=== PATIENT | male | born 1950 | race Two or more races ===

== ENCOUNTER 2016-12-23 16:16 | Outpatient (CLI) | payer OTHER ==
[2016-12-23 16:29] LABS: BILIRUBIN,URINE Negative (NEGATIVE); KETONES,URINE Negative (NEGATIVE); LEUKOCYTE ESTERASE ,URINE Negative (NEGATIVE); NITRITE,URINE Negative (NEGATIVE); PROTEIN,URINE Negative (NEGATIVE); URINE, BLOOD 1+ (NEGATIVE)
[2016-12-23 16:34] LABS: ADD URINE MICROSCOPIC YES
== END 2016-12-23 16:17 | disposition home or self-care (01) ==
LOC: LAB 16:16
PROVIDERS: ATTEND Emergency Medicine
DX: R30.0 Dysuria (principal); N41.9 Inflammatory disease of prostate, unspecified
CPT/HCPCS: 81001

== ENCOUNTER 2019-01-12 11:09 | Outpatient (CLI) | payer OTHER ==
--- NOTE | 2019-01-12 14:43 | DI ---
EXAM: Two views of the chest. History: Cough. Comparison: None available. Findings: Heart size is within normal limits. No focal consolidation. No appreciable pleural fluid and no pneumothorax. A few benign calcified granulomas seen within the right lung. No acute osseou s abnormalities. 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 Impression: No acute cardiopulmonary process
--- NOTE | 2019-01-12 14:44 | DI ---
EXAM: Four views of the right knee. History: Right knee pain. Findings: No acute fracture or dislocation. Mild tricompartmental joint space narrowing with small osteophytes. Minimal superior patellar enthesiopathy. Probable trace joint effusion. Impression: 1. No acute osseous abnormality. 2. Mild tricompartmental osteoarthritis. 3. Minimal superior patellar enthesiopathy 4. Probable trace joint effusion
== END 2019-01-12 11:10 | disposition home or self-care (01) ==
LOC: RAD 11:09
PROVIDERS: ATTEND General Practice
DX: M25.561 Pain in right knee (principal); R05 Cough

== ENCOUNTER 2019-02-06 10:01 | Outpatient (CLI) ==
--- NOTE | 2019-02-06 16:27 | MRI ---
EXAM: MRI of the right knee without contrast COMPARISON: Right knee radiographs 01/12/2019. HISTORY: Right knee pain medially. Possible twisting injury. TECHNIQUE: Multiplanar noncontrast MR images of the right knee were acquired using a 1.2 Aster magne t. FINDINGS: There is a complex tear of the medial meniscus with mild blunting irregularity the free ed ge of the body through the posterior horn/root. In addition to tear involving the free edge and supe rior articular surface with peripheral superior articular surface flap at that level. 1 mm hypointen se focus along the medial aspect of the intercondylar notch which may represent a prominent intrameni scal ligament though a very small bucket-handle fragment is not entirely excluded. Radial tear invol ves the free edge extends peripherally at the body/posterior horn junction. The lateral meniscus is intact. Inversion recovery hyperintense signal throughout the substance of the anterior cruciate ligament rel ated to extensive mucoid degeneration versus a partial/interstitial tear with intact fibers clearly i dentified. The posterior cruciate ligament is intact. Low to intermediate grade sprain of the media l collateral ligament. The lateral collateral ligament complex and posterolateral corner ligaments a re intact. Moderate quadriceps tendinosis enthesopathy with mild patellar tendinosis. No abnormal s ubluxation of the patella. Sprain of the medial patellar retinaculum complex. Marked thinning and deep fissuring of the cartilage of the patella along the medial/odd facet median ridge with subchondral edema cystic change. Marked thinning and ulceration of the cartilage along th e opposing articular surface of the trochlear groove. Large full-thickness cartilage defects along w eightbearing surface of the medial femoral condyle. 1.8 x 1.4 x 0.6 cm focal region of abnormal sign al involving the subchondral portion of the weightbearing surface medial femoral condyle related to a an osteochondral lesion with subchondral cystic change/sclerosis and underlying marrow edema. [place] nent subchondral/insufficiency fracture at that level without articular surface depression. Full-thi ckness cartilage defects involving the opposing articular surface of the medial tibial plateau. Mode rate joint effusion, nonspecific. Slit-like popliteal cyst. Osteochondral body along the popliteus tendon sheath measuring 0.9 cm. IMPRESSION: 1. Complex tear of the medial meniscus with flap formation as described in detail above. 2. Tricompartmental osteoarthrosis with severe changes involving the medial and patellofemoral anahy rtments. Osteochondral lesion involving the weightbearing surface medial femoral condyle with suspec leesa focus of subchondral/insufficiency fracture without articular surface depression. 3. Joint effusion, nonspecific. Consider aspiration if clinically warranted. Slit-like popliteal c yst. 4. Low to intermediate grade sprain of the medial collateral ligament. Mucoid degeneration versus s equela of a partial/interstitial tear of the anterior cruciate ligament intact fibers identified. 5. Moderate quadriceps tendinosis and enthesopathy. Mild patellar tendinosis. Sprain of the medial patellar retinaculum complex without abnormal subluxation of the patella.
== END 2019-02-06 10:02 | disposition home or self-care (01) ==
LOC: RAD 10:01
PROVIDERS: ATTEND General Practice
DX: M25.561 Pain in right knee (principal)